=== PATIENT | male | born 1955 | race Caucasian/White ===

== ENCOUNTER 2016-12-05 08:09 | Day surgery (SDC) | payer MEDICAID ==
[2016-12-05] MEDS ORDERED: BENZOCAINE UNIT DOSE SPRAY HURRICAINE MM ONE (08:13)
[2016-12-05] MEDS ORDERED: ASPIRIN EC 325 MG TAB PO ONE (08:13)
[2016-12-05] MEDS ORDERED: MIDAZOLAM 2 MG/2 ML VIAL IVP ONE (08:13)
[2016-12-05] MEDS ORDERED: FAMOTIDINE 20 MG TAB PO ONE (08:13)
[2016-12-05] MEDS ORDERED: DIAZEPAM 5 MG TAB PO ONE (08:13)
[2016-12-05] MEDS ORDERED: fentaNYL 100 MCG/2 ML INJ IVP ONE (08:13)
[2016-12-05] MEDS ORDERED: diphenhydrAMINE 25 MG CAP PO ONE (08:13)
[2016-12-05] MEDS ORDERED: NS 1,000 ML IV ONE (08:13)
--- NOTE | 2016-12-05 08:43 | CPEKG ---
Heart Rate: 45 RR Interval: 1333 P-R Interval: 168 QRSD Interval: 102 QT Interval: 472 QTC Interval: 409 P Spiro: -25 QRS Spiro: 67 T Wave Spiro: 55 EKG Severity - BORDERLINE ECG - EKG Impression: SINUS BRADYCARDIA EKG Impression: TALL T, CONSIDER METABOLIC/ISCHEMIC ABNRM, Consider hyperkalemia Electronically Signed By: Yovany Costello 05-Dec-2016 15:03:56
[2016-12-05 08:58] LABS: % IMMATURE GRANULYOCYTES 0.2 % (0.0-1.1); ABSOLUTE IMMATURE GRANULOCYTES 0.01 10^3/uL (0.00-0.10); ADD DIFF? NO; ADD MORPH? NO; ADD SCAN? NO; ATYPICAL LYMPHOCYTE FLAG 10 (0-99); FRAGMENT RBC FLAG 0 (0-99); LEFT SHIFT FLG 0 (0-99); LIPEMIA HEMOLYSIS FLAG 80 (0-99); MEAN CELL HEMOGLOBIN 31.8 pg (27.9-34.1); MEAN CELL HEMOGLOBIN CONCENTR. 33.3 g/dL (32.4-36.7); MEAN CELL VOLUME 95.3 fL (81.5-99.8); PLATELET CLUMPS FLAG 10 (0-99); PLATELET COUNT 159 10^3/uL (150-400); RED BLOOD CELL COUNT 4.72 10^6/uL (4.40-6.38); RED CELL DISTRIBUTION WIDTH 13.4 % (11.5-15.2)
[2016-12-05 09:05] LABS: INR 1.13 (0.83-1.16); PROTIME(PATIENT) 14.4 SEC (12.0-15.0)
[2016-12-05 09:13] LABS: ANION GAP 8 mEq/L (8-16); CARBON DIOXIDE 27 mEq/l (22-31); CHLORIDE 106 mEq/L (97-110); CHOLESTEROL 115 mg/dL (140-220); CHOLESTEROL/HDL RATIO 2.35 RATIO (1.00-4.97); CREATININE 0.8 mg/dL (0.7-1.3); GLOMERULAR FILTRATION RATE > 60; GLUCOSE 86 mg/dL (70-100); HIGH DENSITY LIPOPROTEIN 49 mg/dL (40-65); LDL/HDL RATIO 1.14 RATIO (1.00-3.64); LOW DENSITY LIPOPROTEIN 56 mg/dL (80-100); MAGNESIUM 2.1 mg/dL (1.6-2.3); NON-HIGH DENSITY LIPOPROTEIN 66 mg/dL (90-129); POTASSIUM 4.4 mEq/L (3.5-5.2); SODIUM 141 mEq/L (134-144); TRIGLYCERIDE 50 mg/dL (40-150); VERY LOW DENSITY LIPOPROTEINS 10 mg/dL (8-25)
[2016-12-05] MEDS ORDERED: ATROPINE SULFATE 1 MG/10 ML SYR ONE (09:27)
[2016-12-05] MEDS ORDERED: LIDOCAINE 1% 30 ML SDV ONE (09:52)
[2016-12-05] MEDS ORDERED: fentaNYL 100 MCG/2 ML INJ ONE (09:52)
[2016-12-05] MEDS ORDERED: MIDAZOLAM 2 MG/2 ML VIAL ONE ×2 (09:52→09:53)
[2016-12-05] MEDS ORDERED: VERAPAMIL 5 MG/2 ML VIAL ONE (09:53)
[2016-12-05] MEDS ORDERED: IOPAMIDOL (ISOVUE 370) 100 ML BTL IV ONE (09:53)
[2016-12-05] MEDS ORDERED: HEPARIN 10,000 UNIT/10 ML MDV ONE (09:53)
== END 2016-12-05 11:05 | disposition home or self-care (01) ==
LOC: FCATH 08:09
PROVIDERS: ATTEND Internal Medicine Cardiovascular Disease
PROC: B246ZZ4 Ultrasonography of Right and Left Heart, Transesophageal (ICD-10-PCS; principal; 2016-12-05)
DX: I34.1 Nonrheumatic mitral (valve) prolapse (principal); R07.89 Other chest pain; R06.02 Shortness of breath; R94.31 Abnormal electrocardiogram [ECG] [EKG]; R01.1 Cardiac murmur, unspecified; M41.20 Other idiopathic scoliosis, site unspecified
CPT/HCPCS: J0461; J1644; J2250; J3010; Q9967

== ENCOUNTER 2018-04-10 10:13 | Day surgery (SDC) | payer MEDICAID ==
[2018-04-10] MEDS ORDERED: LR 1,000 ML IV ONE (10:40)
[2018-04-10] MEDS ORDERED: MIDAZOLAM 2 MG/2 ML VIAL IVP ONE (10:56)
--- NOTE | 2018-04-10 10:56 | PDANEPAE ---
ANE History of Present Illness b/l inguinal hernia ANE Past Medical History - Cardiovascular History Hx Hypertension: No Hx Arrhythmias: Yes Hx Chest Pain: No Hx Coronary Artery / Peripheral Vascular Disease: No Hx CHF / Valvular Disease: Yes Hx Palpitations: No Cardiovascular History Comment: MITRAL VALVE PROLAPSE- BEING FOLLOWED BY [facility] - Pulmonary History Hx COPD: No Hx Asthma/Reactive Airway Disease: No Hx Recent Upper Respiratory Infection: No Hx Oxygen in Use at Home: No Hx Sleep Apnea: No Sleep Apnea Screening Result - Last Documented: Negative - Neurologic History Hx Cerebrovascular Accident: No Hx Seizures: No Hx Dementia: No - Endocrine History Hx Diabetes: No - Renal History Hx Renal Disorders: No - Liver History Hx Hepatic Disorders: No - Neurological & Psychiatric Hx Hx Neurological and Psychiatric Disorders: No - Cancer History Hx Cancer: No - Congenital Disorder History Hx Congenital Disorders: No - GI History Hx Gastrointestinal Disorders: No - Other Health History Other Health History: NONE - Chronic Pain History Chronic Pain: No - Surgical History Prior Surgeries: EYE SURGERIES. RIGHT KNEE SCOPE ANE Review of Systems Review of Systems: - Exercise capacity METS (RN): 4 METS ANE Patient History - Allergies Allergies/Adverse Reactions: Milk Containing Products [dairy] Allergy (Verified 03/27/18 12:53) soy Allergy (Verified 03/27/18 12:53) wheat Allergy (Verified 03/27/18 12:53) - Home Medications Home medications: home medication list seen and reviewed Home Medications: Herbals/Supplements -Info Only 03/27/18 [Last Taken Unknown] - Anes Hx Anes Hx: no prior problems - Smoking Hx Smoking Status: Never smoked - Family Anes Hx Family Hx Anesthesia Complications: NONE ANE Labs/Vital Signs - Vital Signs Height: 190.5 cm Weight: 74.843 kg ANE Physical Exam - Airway Neck exam: FROM Mallampati Score: Class 1 Mouth exam: normal dental/mouth exam - Pulmonary Pulmonary: no respiratory distress, no rales or rhonchi - Cardiovascular Cardiovascular: regular rate and rhythym, no murmur, rub, or gallop - ASA Status ASA Status: II ANE Anesthesia Plan Anesthesia Plan: general endotracheal anesthesia
[2018-04-10] MEDS ORDERED: BUPIVACAINE/EPI 0.5% 30 ML SDV ONE (11:01)
--- NOTE | 2018-04-10 11:14 | PDHPUP ---
History & Physical Update H&P update statement: This history and physical update is based on an assessment of the patient which was completed after admission or registration (within 24 hours), but prior to the surgery/procedure. H&P update: H&P reviewed & patient examined, no change in patient's condition since H&P completed
--- NOTE | 2018-04-10 11:17 | POSTOPPROG ---
<Fredi Galindo - Last Filed: 04/10/18 11:16> Post Op Note Date of Operation: 04/10/18 Surgeon: Fredi Galindo [employer] Operating Engineer: Evelina Gonzalez Anesthesiologist: Fredi Antunez Anesthesia: GET(General Endotracheal) Pre-op Diagnosis: BIH Post-op Diagnosis: Same Procedure: Lap BIH Inf/Abcess present in the surg proc area at time of surgery?: No EBL: Minimal Complications: no immediate <Evelina Gonzalez - Last Filed: 04/10/18 12:27> Post Op Note Date of Operation: 04/10/18 Surgeon: Fredi Galindo Findings: Bilateral indirect inguinal hernias
[2018-04-10] MEDS ORDERED: ROCURONIUM 50 MG/5 ML VIAL ONE (11:28)
[2018-04-10] MEDS ORDERED: PROPOFOL 200 MG/20 ML VIAL ONE (11:28)
[2018-04-10] MEDS ORDERED: fentaNYL 100 MCG/2 ML INJ ONE (11:28)
[2018-04-10] MEDS ORDERED: LIDOCAINE 2% 5 ML SDV ONE (11:28)
[2018-04-10] MEDS ORDERED: ONDANSETRON 4 MG/2 ML VIAL ONE (11:28)
[2018-04-10] MEDS ORDERED: GLYCOPYRROLATE 0.2 MG/1 ML VIAL ONE ×2 (11:29)
[2018-04-10] MEDS ORDERED: NEOSTIGMINE METHYLSULFATE 5 MG/5 ML SYR ONE (11:29)
[2018-04-10] MEDS ORDERED: DEXAMETHASONE 4 MG/ML VIAL ONE (11:29)
[2018-04-10] MEDS ORDERED: HYDROmorphONE/DILAUDID 1 MG/ML INJ IVP PRN (12:00)
[2018-04-10] MEDS ORDERED: PROMETHAZINE HCL 25 MG/ML INJ IVP PRN (12:00)
[2018-04-10] MEDS ORDERED: fentaNYL 100 MCG/2 ML INJ IVP PRN (12:00)
[2018-04-10] MEDS ORDERED: ONDANSETRON 4 MG/2 ML VIAL IVP PRN (12:00)
[2018-04-10] MEDS ORDERED: NALOXONE HCL 0.4 MG/ML INJ IVP PRN (12:00)
--- NOTE | 2018-04-10 12:28 | POSTANESTH ---
Post Anesthetic Evaluation Cardiovascular Status: Normal, Stable Respiratory Status: Normal, Stable Level of Consciousness/Mental Status: Can Participate in Eval Pain Control: Adequate, Prn Tx Ordered Nausea/Vomiting Control: Adequate, Prn Tx Ordered Complications Possibly Related to Anesthesia: None Noted
[2018-04-10 13:54] VITALS: BP 115/75
--- NOTE | 2018-04-25 14:57 | GOP ---
[f rep st] OPERATIVE REPORT DATE OF OPERATION: 04/10/2018 SURGEON: Fredi Galindo MD SHINGLE TRIMMER: Evelina Hennessy PA-C. ANESTHESIA: General, Dr. Antunez. PREOPERATIVE DIAGNOSIS: Bilateral hernia. POSTOPERATIVE DIAGNOSIS: Bilateral hernia. PROCEDURE PERFORMED: Laparoscopic bilateral inguinal herniorrhaphy. FINDINGS: See below. INDICATIONS: 62-year-old male with symptomatic bilateral inguinal hernias. He is undergoing surgical repair at this time. Risks and benefits were explained including but not limited to bleeding, infection, open conversion, bladder injury as well as recurrence. All questions were answered. He desires to proceed. A surgical services asst is standard and necessary and customary for the safe performance of this procedure. DESCRIPTION OF PROCEDURE: General anesthesia was induced. The abdomen was preinjected with 0.5% Marcaine with epinephrine. A curvilinear infraumbilical incision was created. The left anterior rectus sheath fascia was opened. The preperitoneal space was developed with a balloon dissector trocar until bilateral pubic arches were identified. A structure balloon was inserted followed by two 5 mm lower midline ports. Bilateral spermatic cords were circumferentially encompassed. There were bilateral indirect sacs. The sacs were skeletonized off the cord structures and allowed to fall back toward the abdominal space. Bilateral external rings appeared somewhat patulous. Large 3D patches were inserted and secured to Franklin's ligament and the anterior abdominal wall, allowing for complete coverage of the entire myopectineal service with central overlap. Satisfactory hemostasis was assured. Trocars were removed under direct visualization. The anterior rectus sheath fascia was closed with a running Vicryl suture. The wounds were closed with Monocryl suture followed by Dermabond. The patient was taken to recovery room uneventfully. /[id number]/MODL MTDD
== END 2018-04-10 15:00 | disposition home or self-care (01) ==
LOC: FSGY 10:13
PROVIDERS: ATTEND Surgery
PROC: 0YUA4JZ Supplement Bilateral Inguinal Region with Synthetic Substitute, Percutaneous Endoscopic Approach (ICD-10-PCS; principal; 2018-04-10 11:30)
DX: K40.20 Bilateral inguinal hernia, without obstruction or gangrene, not specified as recurrent (principal); I34.1 Nonrheumatic mitral (valve) prolapse
CPT/HCPCS: C1727; C1781; J1100; J2250; J2405; J2704; J2710; J3010